=== PATIENT | male | born 1995 ===

== ENCOUNTER 2017-08-15 20:10 | Emergency (ER) | payer SELFPAY ==
[~2017-08-15] VITALS: Ht 160 cm; Wt 66.3 kg
[2017-08-15 20:17] VITALS: Ht 160 cm; Wt 66.3 kg
== END 2017-08-16 00:05 | disposition left against medical advice (07) ==
LOC: FTE 20:10
DX: Z53.21 Procedure and treatment not carried out due to patient leaving prior to being seen by health care provider (principal)